=== PATIENT | female | born 1990 | race Caucasian/White ===

== ENCOUNTER 2017-01-12 18:12 | Emergency (ER) | payer OTHER ==
[2017-01-12 19:13] LABS: HCT 39.1 % (37.0-47.0); HGB 13.1 g/dl (12.5-16.0); RBC 4.74 M/uL (4.20-5.40); WBC 8.1 K/uL (4.0-10.5)
[2017-01-12 19:14] LABS: MCH 27.6 pg (25.0-31.0); MCHC 33.5 g/dL (32.0-36.0); MCV 82.5 fL (78.0-100.0); PLT 205 K/uL (150-400)
[2017-01-12 19:30] LABS: CREATININE 0.6 mg/dL (0.5-1.0); POTASSIUM 3.7 mmol/L (3.5-5.1)
== END 2017-01-12 20:00 | disposition home or self-care (01) ==
LOC: FER 18:12
PROVIDERS: Nurse Practitioner
DX: O99.89 Other specified diseases and conditions complicating pregnancy, childbirth and the puerperium (principal); R07.89 Other chest pain; R00.2 Palpitations; O99.419 Diseases of the circulatory system complicating pregnancy, unspecified trimester; I10 Essential (primary) hypertension; O99.280 Endocrine, nutritional and metabolic diseases complicating pregnancy, unspecified trimester; E05.90 Thyrotoxicosis, unspecified without thyrotoxic crisis or storm; O99.340 Other mental disorders complicating pregnancy, unspecified trimester; F41.9 Anxiety disorder, unspecified; Z79.899 Other long term (current) drug therapy
CPT/HCPCS: 36415; 80048; 84484; 84702; 93005